=== PATIENT | male | born 1955 | race Caucasian/White ===

== ENCOUNTER 2017-03-06 05:36 | Observation (INO) ==
[2017-03-06] MEDS ORDERED: *HR* LORazepam 0.5 MG TABLET PO ONE (06:16)
[2017-03-06 07:16] LABS: INR 1.1; Prothrombin Time 11.7 Seconds (9.4-12.1)
[2017-03-06 07:19] LABS: Activated Partial Thrombo Time 23.9 Seconds (26.0-36.0)
[2017-03-06 07:22] LABS: Basophils # 0.1 K/mcL (0.0-0.2); Basophils % 0.4 %; Eosinophils % 0.3 %; Hematocrit 40.3 % (37.5-50.1); Hemoglobin 13.7 g/dL (12.9-16.9); Immature Granulocytes % 0.5 % (0-4); Lymphocytes % 33.1 %; Mean Corpuscular Hemoglobin 32.7 pg (28.0-33.3); Mean Corpuscular Volume 96.2 fL (83.0-100.0); Mean Platelet Volume 9.7 fL (9.4-12.4); Monocytes # 0.7 K/mcL (0.0-1.3); Monocytes % 5.6 %; Neutrophils # 7.2 K/mcL (1.6-8.9); Platelet Count 425 K/mcL (140-400); Red Blood Count 4.19 M/mcL (4.19-5.50); Red Cell Distribution Width 13.1 % (11.5-14.5); Segmented Neutrophils % 60.1 %
[2017-03-06 07:42] LABS: Alanine Aminotransferase 30 Units/L (0-55); Albumin 3.4 g/dL (3.5-5.0); Albumin/Globulin Ratio 0.8 (1.1-2.2); Alkaline Phosphatase 64 Units/L (38-126); BUN/Creatinine Ratio 17 (6-26); Bilirubin,Indirect 1.1 mg/dL (0.0-1.2); Bilirubin,Total 1.5 mg/dL (0.2-1.2); Blood Urea Nitrogen 12 mg/dL (8-26); Calcium 9.6 mg/dL (8.6-10.8); Carbon Dioxide 18 mEq/L (19-29); Chloride 105 mEq/L (98-109); Globulin 4.5 g/dL (2.4-3.5); Glucose 202 mg/dL (70-99); Osmolality,Calculated 288 (280-300); Sodium 136 mEq/L (136-145); Total Protein 7.9 g/dL (6.0-8.3); eGFR For African Americans > 60 (> 60); eGFR For Non-African Americans > 60 (> 60)
[2017-03-06 07:44] LABS: Aspartate Amino Transferase 26 Units/L (5-34); Bilirubin,Direct 0.4 mg/dL (0.0-0.5)
--- NOTE | 2017-03-06 07:57 | Emergency Department Note ---
Disposition Clinical Impression: Confusion Disposition: Admitted As Inpatient Condition: Fair Time of Disposition: 11:00 General Adult HPI - General Chief complaint: ED Neuro Symptoms/Deficit Stated complaint: ams Time Seen by Provider: 03/06/17 07:11 Source: patient Limitations: no limitations Nursing Notes Reviewed: Yes Vital Signs Reviewed: Yes - History of Present Illness HPI Narrative: Mr. Ramos, a 61yo male, presents from home by POV with bedside. Majority of history from . Chief complaint is altered mentation described as confusion, difficulty word finding. Onset appx 10 days ago when patient underwent spinal stenosis surgery. He discontinued opiate yesterday with no improvement in symptoms. Patient's notes this is the fourth episode. Episode 1 happened several years ago, unknown cause, spontaneously resolved. Episode 2 occured when patient's was diagnosed with cancer, spontaneously resolved. Episode 3 occurred when patient's started chemo, spontaneously resolved. Patient's notes he has been in the hospital and evaluated for the symptoms with no definitive cause found her knowledge. She is unsure of the workup he received. Patient's prefers that they go home instead of admission to the hospital so because he has been admitted previously with reportedly benign workup. PMH: HTN, HLD, DM II, anxiety Pain Scale: 0 - Related Data Home Medications Medication Instructions Recorded Confirmed Atorvastatin [Lipitor] 40 mg PO HS 02/24/17 02/24/17 Cholecalciferol (D-3) [Vitamin D] 5,000 unit PO DAILY 02/24/17 02/24/17 Enalapril Maleate [Vasotec] 10 mg PO DAILY 02/24/17 02/24/17 GlipiZIDE [Glipizide ER] 10 mg PO DAILY 02/24/17 02/24/17 Sitagliptin Phos/Metformin HCl 1 each PO DAILY 02/24/17 02/24/17 [Janumet 50-1,000 mg Tablet] Trazodone HCl 100 - 150 mg PO HS 02/24/17 02/24/17 Previous Rx's Medication Instructions Recorded OxyCODONE Immed Rel [Roxicodone 5 5 mg PO Q6HR PRN #60 tablet 02/25/17 MG] Allergies Allergy/AdvReac Type Severity Reaction Status Date / Time No Known Allergies Allergy Verified 02/24/17 08:06 All systems ED: reviewed and negative except as stated. Constitutional: Denies: fever, chills, weakness, weight change, night sweats Eyes: Denies: vision change ENT ED: Denies: ear pain, congestion Cardiovascular: Denies: chest pain, palpitations, dyspnea on exertion, orthopnea , edema, syncope Respiratory: Denies: cough, dyspnea, wheezes Gastrointestinal: Denies: abdominal pain, nausea, vomiting, diarrhea, constipation Genitourinary: Denies: urgency, dysuria, frequency Musculoskeletal: Reports: back pain. Denies: neck pain Neurological: Reports: confusion. Denies: headache, weakness, numbness, paresthesias, abnormal gait, vertigo Psychiatric: Reports: anxiety. Denies: depression Past Medical History - Past Medical History Medical history: Reports: diabetes, hypertension Psychiatric history: Reports: depression, other - Social History Smoking Status: Current every day smoker Smokeless Tobacco Status: No Alcohol use: Reports: none Drug use: Reports: none Physical Exam Vital signs reviewed and within normal limits. General: Patient is alert, oriented, and in no acute distress. Patient is alert and oriented to person, place, situation. HEENT: No facial asymmetry. Head is normocephalic and atraumatic. PERRLA, EOMI. Nasal turbinates moist and pink. Posterior pharynx without exudates or cobblestoning. Trachea midline, no palpable thyroid nodules, no thyromegaly. Cardiovascular: Heart regular rate and rhythm without clicks, rubs, gallops, or murmurs. No JVD. PMI nondisplaced. Respiratory: Symmetric chest rise with good respiratory effort. Bilateral breath sounds are clear without wheezing, crackles, or rhonchi. Abdomen: Bowel sounds present normoactive x-4 quadrants. Abdomen is soft, nondistended, and nontender. No organomegaly noted. Musculoskeletal: Muscle strength 5/5 and symmetric bilaterally in upper and lower extremities. DTRs 2/4 and symmetric bilaterally in upper and lower extremities. Neuro: GCS 15. Cranial nerves II through XII without deficit. Sensation light touch intact. Psych: Patient's affect is appropriate for situation. Patient appears anxious. - General Limitations: no limitations General appearance: alert, in no apparent distress Course Course Narrative: Chest x-ray unremarkable. CT head without contrast unremarkable. Troponins 0. EKG unremarkable. Electrolytes within laboratory limits. Urinalysis negative. His feet with the patient and the patient's , they have agreed to admission for continued workup. Patient's believes this is anxiety/stress related. That very well may be, further workup must ensue to rule out other potentially nefarious pathology. Patient accepted by Dr. Stroud. Vital Signs Temperature 97.6 F 03/06/17 05:37 Pulse Rate 112 03/06/17 05:37 Respiratory Rate 20 03/06/17 05:37 Blood Pressure 144/84 03/06/17 05:37 O2 Sat by Pulse Oximetry 98 03/06/17 05:37 Temperature 97.6 F 03/06/17 05:37 Pulse Rate 95 03/06/17 11:30 Respiratory Rate 18 03/06/17 12:01 Blood Pressure 146/87 03/06/17 12:01 O2 Sat by Pulse Oximetry 93 03/06/17 11:30 Oxygen Delivery Oxygen Delivery Room Air Medical Decision Making - Medical Records Medical records reviewed: Yes I reviewed the patient's medical records. - Lab Data Lab results reviewed: Yes I reviewed the patient's lab results. Result diagrams: 03/06/17 06:55 03/06/17 06:55 Lab Results 03/06/17 03/06/17 03/06/17 Range/Units 06:55 06:55 06:55 WBC 12.0 H (4.3-11.1) K/mcL RBC 4.19 (4.19-5.50) M/mcL Hgb 13.7 (12.9-16.9) g/dL Hct 40.3 (37.5-50.1) % MCV 96.2 (83.0-100.0) fL MCH 32.7 (28.0-33.3) pg MCHC 34.0 (31.6-35.5) g/dL RDW 13.1 (11.5-14.5) % Plt Count 425 H (140-400) K/mcL MPV 9.7 (9.4-12.4) fL Immature Gran % 0.5 (0-4) % Seg Neutrophils % 60.1 % Lymphocytes % 33.1 % Monocytes % 5.6 % Eosinophils % 0.3 % Basophils % 0.4 % Neutrophils # 7.2 (1.6-8.9) K/mcL Lymphocytes # 4.0 (0.6-4.6) K/mcL Monocytes # 0.7 (0.0-1.3) K/mcL Eosinophils # 0.0 (0.0-0.6) K/mcL Basophils # 0.1 (0.0-0.2) K/mcL PT 11.7 (9.4-12.1) Seconds INR 1.1 APTT 23.9 L (26.0-36.0) Seconds Sodium (136-145) mEq/L Potassium (3.5-4.5) mEq/L Chloride (98-109) mEq/L Carbon Dioxide (19-29) mEq/L BUN (8-26) mg/dL Creatinine (0.72-1.25) mg/dL Est GFR ( Amer) (> 60) Est GFR (Non-Af Amer) (> 60) BUN/Creatinine Ratio (6-26) Glucose (70-99) mg/dL Calculated Osmolality (280-300) Calcium (8.6-10.8) mg/dL Total Bilirubin (0.2-1.2) mg/dL Direct Bilirubin (0.0-0.5) mg/dL Indirect Bilirubin (0.0-1.2) mg/dL AST (5-34) Units/L ALT (0-55) Units/L Alkaline Phosphatase (38-126) Units/L Troponin I 0.00 (0-0.03) ng/mL Serum Total Protein (6.0-8.3) g/dL Albumin (3.5-5.0) g/dL Globulin (2.4-3.5) g/dL Albumin/Globulin Ratio (1.1-2.2) Urine Color (Yellow) Urine Clarity (Clear) Urine pH (5.0-8.0) pH Units Ur Specific [place] (1.010-1.025) Urine Protein (Neg-Trace) mg/dL Urine Glucose (UA) (Normal) mg/dL Urine Ketones (Negative) mg/dL Urine Blood (Negative) Urine Nitrite (Negative) Urine Bilirubin (Negative) Urine Urobilinogen (Normal) mg/dL Ur Leukocyte Esterase (Negative) Urine Microscopic RBC (0-3) per hpf Urine Microscopic WBC (0-3) per hpf Ur Squamous Epith Cells (None-Few) per lpf Urine Bacteria (None-Few) per hpf Hyaline Casts (None-Few) per lpf Ur Culture Indicated? (NO) 03/06/17 03/06/17 Range/Units 06:55 10:02 WBC (4.3-11.1) K/mcL RBC (4.19-5.50) M/mcL Hgb (12.9-16.9) g/dL Hct (37.5-50.1) % MCV (83.0-100.0) fL MCH (28.0-33.3) pg MCHC (31.6-35.5) g/dL RDW (11.5-14.5) % Plt Count (140-400) K/mcL MPV (9.4-12.4) fL Immature Gran % (0-4) % Seg Neutrophils % % Lymphocytes % % Monocytes % % Eosinophils % % Basophils % % Neutrophils # (1.6-8.9) K/mcL Lymphocytes # (0.6-4.6) K/mcL Monocytes # (0.0-1.3) K/mcL Eosinophils # (0.0-0.6) K/mcL Basophils # (0.0-0.2) K/mcL PT (9.4-12.1) Seconds INR APTT (26.0-36.0) Seconds Sodium 136 (136-145) mEq/L Potassium 4.0 (3.5-4.5) mEq/L Chloride 105 (98-109) mEq/L Carbon Dioxide 18 L (19-29) mEq/L BUN 12 (8-26) mg/dL Creatinine 0.69 L (0.72-1.25) mg/dL Est GFR ( Amer) > 60 (> 60) Est GFR (Non-Af Amer) > 60 (> 60) BUN/Creatinine Ratio 17 (6-26) Glucose 202 H (70-99) mg/dL Calculated Osmolality 288 (280-300) Calcium 9.6 (8.6-10.8) mg/dL Total Bilirubin 1.5 H (0.2-1.2) mg/dL Direct Bilirubin 0.4 (0.0-0.5) mg/dL Indirect Bilirubin 1.1 (0.0-1.2) mg/dL AST 26 (5-34) Units/L ALT 30 (0-55) Units/L Alkaline Phosphatase 64 (38-126) Units/L Troponin I (0-0.03) ng/mL Serum Total Protein 7.9 (6.0-8.3) g/dL Albumin 3.4 L (3.5-5.0) g/dL Globulin 4.5 H (2.4-3.5) g/dL Albumin/Globulin Ratio 0.8 L (1.1-2.2) Urine Color Yellow (Yellow) Urine Clarity Clear (Clear) Urine pH 6.0 (5.0-8.0) pH Units Ur Specific [place] 1.021 (1.010-1.025) Urine Protein Trace (Neg-Trace) mg/dL Urine Glucose (UA) 100 H (Normal) mg/dL Urine Ketones Negative (Negative) mg/dL Urine Blood Negative (Negative) Urine Nitrite Negative (Negative) Urine Bilirubin Negative (Negative) Urine Urobilinogen Normal (Normal) mg/dL Ur Leukocyte Esterase Negative (Negative) Urine Microscopic RBC 3-5 H (0-3) per hpf Urine Microscopic WBC 0-3 (0-3) per hpf Ur Squamous Epith Cells Moderate H (None-Few) per lpf Urine Bacteria None Seen (None-Few) per hpf Hyaline Casts None Seen (None-Few) per lpf Ur Culture Indicated? NO (NO) - Radiology Data Radiology results reviewed: Yes I reviewed the patient's radiology results. Attestation Statement - Attestation Attestation: I, Ismael Ansari, examined this patient and my medical decision-making was reviewed with the PERMIT SPECIALIST/PA/Advanced Practice Nurse/Resident Physician. I agree with the documented findings, disposition and treatment plan as described except to the extent set forth below. 61-year-old male brought in by for concerns of altered mental status. states the symptoms have been worsening over the past 10 days. Patient woke today, felt very anxious and wanted to be evaluated in the emergency department. Patient has had multiple similar episodes in the past which have been evaluated in the hospital without satisfactory diagnosis. states the symptoms in the past were likely secondary to anxiety and stress response because symptoms happened after acute life events. Patient recently had lumbar surgery for spinal stenosis and has been steadily improving however like a stressful at home at this time. Patient denies fever, chills, nausea, vomiting , chest pain, shortness of breath, palpitations, abdominal pain, dysuria. Patient reports over the past year he has had difficulty with urination, with increased urinary urgency and frequency. He has not had his prostate evaluated by his primary care provider. On physical exam the patient is alert and oriented 3. He has no neurologic deficits to examination. He does have some mild confusion with increased response times however his responses are appropriate.
[2017-03-06] MEDS ORDERED: 0.9 % Sodium Chloride 1,000 ML IVC ONE (08:51)
[2017-03-06 10:17] LABS: Bilirubin,Urine Negative (Negative); Blood,Urine Negative (Negative); Clarity,Urine Clear (Clear); Color,Urine Yellow (Yellow); Glucose,Urine (UA) 100 mg/dL (Normal); Ketones,Urine Negative (Negative); Leukocyte Esterase,Urine Negative (Negative); Nitrite,Urine Negative (Negative); Protein,Urine Trace mg/dL (Neg-Trace); Specific Gravity,Urine 1.021 (1.010-1.025); Urobilinogen,Urine Normal (Normal)
[2017-03-06 10:19] LABS: Bacteria,Urine None Seen per hpf (None-Few); Hyaline Casts,Urine None Seen per lpf (None-Few); Squamous Epithelial Cell,Urine Moderate per lpf (None-Few); WBC,Urine 0-3 per hpf (0-3)
[2017-03-06] MEDS ORDERED: Aspirin 325 MG TABLET PO ONE (11:40)
[2017-03-06] MEDS ORDERED: Acetaminophen 325 MG TABLET PO PRN (12:20)
[2017-03-06] MEDS ORDERED: Naloxone 0.4 MG/ML INJ IVP PRN (12:20)
--- NOTE | 2017-03-06 13:19 | Internal Med History&Physical ---
Date of Encounter: 03/06/17 Time of Encounter: 12:45 Assessment and Plan (1) Altered mental status Current visit: Yes Status: Acute Observation. Will get MRI of the brain to look for any organic cause. Most likely related to his anxiety. No focal findings on examination today. Qualifiers: Altered mental status type: disorientation Qualified Code(s): R41.0 - Disorientation, unspecified (2) Diabetes mellitus, type 2 Current visit: Yes Status: Chronic Monitor blood sugars. Sliding scale insulin. Qualifiers: Diabetes mellitus complication status: with hyperglycemia Diabetes mellitus detention insulin use: without detention use Qualified Code(s): E11.65 - Type 2 diabetes mellitus with hyperglycemia (3) Essential hypertension Current visit: Yes Status: Chronic Monitor blood pressure. Continue home medications. (4) Anxiety disorder Current visit: Yes Status: Chronic Continue trazodone. Will need outpatient follow-up with psychiatric for further management Qualifiers: Anxiety disorder type: other anxiety disorder Qualified Code(s): F41.8 - Other specified anxiety disorders Internal Medicine - H&P: HPI Chief complaint: Confusion Admitted From: Emergency Dept Plans for Post Hospital Care: Home History of present illness: Mr. Ramos is a 61 year old male patient with history of hypertension, diabetes mellitus type 2, anxiety who presented to the ER with complaints of confusion that began last night. Patient recently underwent spine surgery with laminectomy at L3-S1. He had been doing well until last night when he became disoriented according to his . He is able to carry out his ADLs but does not seem to be processing information like he normally does. She describes that his eyes seem to be glazed. Denies any focal weakness or numbness. No seizure-like activity. No bowel or bladder incontinence. The patient's reports that this is the fourth episode of similar symptoms for the patient. His first episode was related to use of sleeping pills. The episodes after that were related to when she was diagnosed with cancer. His episodes seem to start with increased anxiety and patient becomes angry and disoriented after that. He has had extensive workup for this without any clear abnormalities found. Past Med Surg Social Fam HX - Past Medical History Attestation: Yes The following information was validated with the patient. Source: patient, obtained from family Medical history: diabetes, hypertension Psychiatric history: depression, other - Social History Smoking Status: Current every day smoker Smokeless Tobacco Status: No Alcohol use: none Drug use: none - Family History Mother Hx Family Cancer: Yes Internal Medicine - H&P: Meds Atorvastatin [Lipitor] 40 mg PO HS 02/24/17 [History] Cholecalciferol (D-3) [Vitamin D] 5,000 unit PO DAILY 02/24/17 [History] Enalapril Maleate [Vasotec] 10 mg PO DAILY 02/24/17 [History] GlipiZIDE [Glipizide ER] 10 mg PO DAILY 02/24/17 [History] Sitagliptin Phos/Metformin HCl [Janumet 50-1,000 mg Tablet] 1 tab PO BID [History] Trazodone HCl 100 - 150 mg PO HS 02/24/17 [History] OxyCODONE Immed Rel [Roxicodone 5 MG] 5 mg PO Q6HR PRN #60 tablet 02/25/17 [Rx] Allergies No Known Allergies Allergy (Verified 02/24/17 08:06) All Systems PM: A 10-system review of systems was performed and is negative for pertinent findings except as documented above in the HPI. - Constitutional Constitutional: no chills, no fever(s), no night sweats - EENT Eyes: no change in vision, no discharge, no pain, no photophobia Ears: no ear discharge, no ear pain, no tinnitus Nose, mouth and throat: no dysphagia, no nasal discharge, no neck pain, no sore throat - Cardiovascular Cardiovascular ROS IM: no chest pain, no diaphoresis, no dyspnea, no lightheadedness, no palpitations, no syncope - Respiratory Respiratory: no cough, no dyspnea, no wheezing, no excessive phlegm production - Gastrointestinal Gastrointestinal: no abdominal pain, no diarrhea, no hematemesis, no hematochezia, no melena, no nausea, no vomiting - Musculoskeletal Musculoskeletal ROS IM: no numbness, no tingling - Integumentary Integumentary IM: no rash, no unusual bruising - Neurological Neurological ROS: no confusion, no convulsions, no focal weakness, no numbness, no tingling, no tremor(s) - Psychiatric Psychiatric: confusion - Hematologic/Lymphatic Hematologic/Lymphatic: no easy bruising - Constitutional Vitals: Temp Pulse Resp BP Pulse Ox 97.6 F 95 18 146/87 93 03/06/17 05:37 03/06/17 11:30 03/06/17 12:01 03/06/17 12:01 03/06/17 11:30 General appearance: Present: cooperative, A&O X 3, no acute distress, answers questions appropriately - Eye Eye exam: Present: EOMI, PERRL, conjuntiva pink, sclera anicteric - Neck Neck exam general surgery: Present: supple, trachea midline. Absent: lymphadenopathy - Respiratory Respiratory exam: Present: CTAB. Absent: accessory muscle use, rales, rhonchi, wheezes - Cardiovascular Cardiovascular exam: Present: RRR, +S1, +S2. Absent: diastolic murmur, gallop, rubs, systolic murmur - GI/Abdominal GI/Abdominal exam: Present: normal bowel sounds, soft, no peritoneal signs. Absent: distended, tenderness - Extremities Exam Extremities exam: Present: warm, radial pulses palpable and symetrical. Absent : calf tenderness, cyanotic, pedal edema - Neurological Exam Neurological exam: Present: alert, oriented X3, no focal deficits. Absent: facial droop, speech deficit - Skin Skin exam: Present: dry, intact Internal Med - H&P Results - Labs CBC & Chem 7: 03/06/17 06:55 03/06/17 06:55 - Impressions Impressions Chest X-Ray 03/06/17 05:43 IMPRESSION: No evidence of acute cardiopulmonary disease. D/ / Chema Lorenzo MD / Chema Lorenzo MD Interpreting Provider: Chema Lorenzo MD Head CT 03/06/17 06:11 IMPRESSION: No acute intracranial abnormality. D/ / Michael Haney MD / Michael Haney MD Interpreting Provider: Michael Haney MD - Attending Attestation This document has been at least partially created by [employer] recognition technology by Dr. Stroud. Errors in grammar, wording or other phrases may exist. If errors are found after the documentation is signed, they will be addressed individually in the addendum section of this document when appropriate.
[2017-03-06] MEDS ORDERED: Dextrose Gel 15 GM PO PRN ×2 (13:25)
[2017-03-06] MEDS ORDERED: D5% in Water 1,000 ML IVC PRN (13:25)
[2017-03-06] MEDS ORDERED: *HR* Dextrose 50 % in Water (Syg) 50 ML SYRINGE IVP PRN (13:25)
[2017-03-06] MEDS ORDERED: *HR* LORazepam 2 MG/ML VIAL IVP PRN (14:39)
[2017-03-06] MEDS: Insulin LISPRO 300 UNITS/3 ML VIAL SQ SCH (18:27)
[2017-03-06] MEDS ORDERED: traZODone 50 MG TABLET PO SCH (21:00)
[2017-03-06] MEDS ORDERED: Insulin LISPRO 300 UNITS/3 ML VIAL SQ SCH (21:00)
[2017-03-06 22:19] LABS: Amphetamine Screen,Urine Negative ng/mL (Cutoff=1000); Barbiturate Screen,Urine Negative ng/mL (Cutoff=200); Benzodiazepines Screen,Urine Negative ng/mL (Cutoff=200); Cannabinoid Screen,Urine Positive ng/mL (Cutoff = 50); Cocaine Screen,Urine Negative ng/mL (Cutoff= 300); Opiate Screen,Urine Negative ng/mL (Cutoff=300); Phencyclidine Screen,Urine Negative ng/mL (Cutoff=25)
[2017-03-07 05:43] LABS: Basophils % 0.4 %; Eosinophils # 0.2 K/mcL (0.0-0.6); Eosinophils % 2.1 %; Hematocrit 36.5 % (37.5-50.1); Hemoglobin 12.3 g/dL (12.9-16.9); Immature Granulocytes % 0.3 % (0-4); Lymphocytes # 4.2 K/mcL (0.6-4.6); Lymphocytes % 44.2 %; Mean Corpuscular HGB Conc 33.7 g/dL (31.6-35.5); Mean Corpuscular Hemoglobin 32.6 pg (28.0-33.3); Mean Corpuscular Volume 96.8 fL (83.0-100.0); Mean Platelet Volume 9.5 fL (9.4-12.4); Monocytes # 0.5 K/mcL (0.0-1.3); Monocytes % 5.6 %; Neutrophils # 4.5 K/mcL (1.6-8.9); Platelet Count 407 K/mcL (140-400); Red Blood Count 3.77 M/mcL (4.19-5.50); Red Cell Distribution Width 13.1 % (11.5-14.5); Segmented Neutrophils % 47.4 %
[2017-03-07 05:56] LABS: BUN/Creatinine Ratio 15 (6-26); Blood Urea Nitrogen 11 mg/dL (8-26); Calcium 8.9 mg/dL (8.6-10.8); Carbon Dioxide 20 mEq/L (19-29); Chloride 107 mEq/L (98-109); Glucose 279 mg/dL (70-99); Osmolality,Calculated 293 (280-300); Potassium 3.7 mEq/L (3.5-4.5); Sodium 137 mEq/L (136-145); eGFR For African Americans > 60 (> 60); eGFR For Non-African Americans > 60 (> 60)
[2017-03-07] MEDS: Insulin LISPRO 300 UNITS/3 ML VIAL SQ SCH (08:18)
[2017-03-07 10:23] VITALS: BP 112/74
--- NOTE | 2017-03-07 12:40 | Electrocardiograph Report ---
[address] [address] Test Date: 2017-03-06 Pat Name: Maldonado Ramos Department: 102 Room: 3A12 Gender: M Asbestos Worker: Jonathan : 1955 Requested By: Donovan Torres Order Number: [id number] Reading MD: Ismael Rasmussen Measurements Intervals [place] Rate: 102 P: 46 VT: 165 QRS: 59 QRSD: 96 T: 36 QT: 346 QTc: 405 Interpretive Statements SINUS TACHYCARDIA WITH OCCASIONAL SUPRAVENTRICULAR PREMATURE COMPLEXES LOW QRS VOLTAGE IN PRECORDIAL LEADS ABNORMAL RHYTHM ECG Electronically Signed On 03-07-2017 12:39:21 EDT by Ismael Rasmussen
--- NOTE | 2017-03-07 15:23 | Event Note ---
Date of Encounter: 03/07/17 Time of Encounter: 10:40 Patient was seen and assessed by me at about 1040 this morning. Patient is sitting up on the side of his bed, alert and oriented, facial movements are symmetrical, speech is clear, strength against resistance and grasps are strong and equal bilaterally. I walked patient in the hallway myself, his gait was steady. Patient states that he is ready to go home and he feels well. We are discussing discharge and he starts talking about the OxyContin that he has are rubber. I asked him to clarifying he said that they are not the plastic ones occupying the street but you cannot snort because they have plastic in them. I asked him if he had been using the OxyContin and marijuana together. He says that he did not. He did ask me for a prescription for them. I told him he would have to follow up with his primary care physician or his back surgeon. He said initially that he had stopped taking them due to he felt that was what was making him groggy and confused. As I was leaving the room, his shows up. She apparently had requested a prescription for OxyContin and Ambien. She did not speak to me about these things questioned when he was going to see a neurologist. I told her that I could probably set up an appointment in the office this week for him to follow-up with neurology, she said she wanted him to be seen now. I did speak with neurology life skills consultant who said he would be in to see the patient. As I was walking back to the room to let her know that he would be here, though sidetracked by a nurse requesting assistance with another patient. I heard from patient's primary nurse that he left AMA in the said that she wanted him out of here right now. I did not get to start on patient's discharge or give him any instructions prior to him leaving.
--- NOTE | 2017-03-07 15:32 | Event Note ---
Date of Encounter: 03/07/17 Time of Encounter: 10:40
== END 2017-03-07 11:30 | disposition left against medical advice (07) ==
LOC: 3ANU 05:36 → EMEROO 05:36 → SUATTDRO 11:47 → 3ANU 12:03
PROVIDERS: ADMIT Internal Medicine; ATTEND Internal Medicine